=== PATIENT | male | born 1945 | race Caucasian/White ===

== ENCOUNTER 2024-06-11 18:31 | Inpatient (IN) | payer OTHER, MEDICARE ==
[~2024-06-11] VITALS: Ht 190.5 cm; Wt 86.7 kg
[2024-06-11] MEDS ORDERED: ACET325S20 PR (18:57)
[2024-06-11] MEDS ORDERED: ESCI-8 PO (18:57)
[2024-06-11] MEDS ORDERED: TRAZ-252 PO (18:57)
[2024-06-11] MEDS ORDERED: GABA-1181 PO (18:57)
[2024-06-11] MEDS ORDERED: EMPA25TA3 PO (18:57)
[2024-06-11 19:12] LABS: COVID AG,FIA SOURCE NASAL SWAB
[2024-06-11 19:32] LABS: SARS-COV2 (COVID) ANTIGEN,FIA Negative (Negative)
[2024-06-11 19:59] LABS: ALCOHOL, URINE DRUG SCREEN NEGATIVE (NEGATIVE); AMPHET/METH SCREEN,URINE NEGATIVE (NEGATIVE); BARBITURATE SCREEN, URINE NEGATIVE (NEGATIVE); BENZODIAZEPINES SCREEN,URINE NEGATIVE (NEGATIVE); CANNABINOID SCREEN,URINE NEGATIVE (NEGATIVE); COCAINE SCREEN,URINE NEGATIVE (NEGATIVE); METHADONE SCREEN, URINE NEGATIVE (NEGATIVE); OPIATE SCREEN,URINE NEGATIVE (NEGATIVE); PHENCYCLIDINE SCREEN,URINE NEGATIVE (NEGATIVE)
[2024-06-11 20:01] LABS: PH,URINE DRUG SCREEN 6.5 (5.0-8.0)
[2024-06-11 20:38] LABS: BASOPHILS % (AUTO) 0.7 % (0.0-2.0); EOSINOPHILS % (AUTO) 2.9 % (1.0-6.0); HEMATOCRIT 44.8 % (41-53); LYMPHOCYTES # (AUTO) 2.5 K/uL (1.0-4.8); LYMPHOCYTES % (AUTO) 37.5 % (22.0-44.0); MEAN CORPUSCULAR HEMOGLOBIN 34.9 pg (26.0-34.0); MEAN CORPUSCULAR HGB CONC 33.4 G/dL (31.0-37.0); MEAN CORPUSCULAR VOLUME 105 fL (80-100); MONOCYTES # (AUTO) 0.7 K/uL (0.1-1.0); NEUTROPHILS # (AUTO) 3.2 K/uL (1.8-7.7); NEUTROPHILS % (AUTO) 48.9 % (40.0-70.0); PLATELET COUNT (AUTO) 136 K/uL (150-450); RED BLOOD CELL COUNT(AUTO) 4.28 MIL/uL (4.50-5.90); RED CELL DISTRIBUTION WIDTH 12.8 % (11.5-14.5); WHITE BLOOD COUNT (AUTO) 6.6 K/uL (4.5-11.0)
[2024-06-11 20:44] LABS: ANION GAP 9 mmol/L (8-16); CALCIUM, TOTAL 8.4 mg/dL (8.8-10.5); CARBON DIOXIDE 27 mmol/L (22-29); CHLORIDE 104 mmol/L (98-107); CREATININE 0.82 mg/dL (0.60-1.30); GLOMERULAR FILTR. RATE CALC > 60 mL/min (>60); GLUCOSE,RANDOM 92 mg/dL (70-110); POTASSIUM 4.2 mmol/L (3.5-5.1); SODIUM SERUM 140 mmol/L (136-145); UREA NITROGEN, BLOOD 11 mg/dL (7-18)
[2024-06-11 20:51] LABS: ALCOHOL, BLOOD (SERUM) < 3 mg/dL (0-10)
[2024-06-11] MEDS ORDERED: ChlorproMAZINE HCL 50 MG TABLET PO PRN (22:45)
[2024-06-11] MEDS: LORazepam 2 MG TABLET PO PRN (23:56)
[2024-06-11] MEDS: ZOLPIDEM TARTRATE 5 MG TABLET PO PRN (23:57)
[2024-06-12 04:03] VITALS: O2SAT 96
[2024-06-12 05:43] VITALS: BP 118/58; PULSE 82; RESP 18; TEMP 98.2; O2SAT 98
[2024-06-12] MEDS ORDERED: INFLUENZA VIRUS VACCINE TVS (6MO+) 2024-25/PF 45 MCG/0.5 ML SYRINGE IM. ONE (06:00)
[2024-06-12] MEDS ORDERED: PNEUMOCOCCAL VACCINE POLYVALENT 0.5 ML SYRINGE [PPSV23] IM. ONE (06:00)
[2024-06-12 06:50] LABS: GLUCOMETER DEV NAME(LOC) BV3N.2; GLUCOSE,POINT OF CARE 87 MG/DL (70-110)
[2024-06-12] MEDS ORDERED: BENZOCAINE/MENTHOL LOZENGE PO PRN (07:00)
[2024-06-12] MEDS ORDERED: CloNIDine HCL 0.1 MG TABLET PO PRN (07:00)
[2024-06-12] MEDS ORDERED: ONDANSETRON 4 MG TABLET PO PRN (07:00)
[2024-06-12] MEDS ORDERED: ALBUTEROL SULFATE HFA 90 MCG/PUFF 8 GM INHALER IH PRN (07:00)
[2024-06-12] MEDS ORDERED: MAG HYDROX/ALUMINUM HYD/SIMETH ES 30 ML SUSPENSION UDCUP PO PRN (07:00)
[2024-06-12] MEDS ORDERED: MAGNESIUM HYDROXIDE SUSPENSION 30 ML UDCUP PO PRN (07:00)
[2024-06-12] MEDS ORDERED: DOCUSATE SODIUM 100 MG CAPSULE PO PRN (07:00)
[2024-06-12] MEDS ORDERED: LOPERAMIDE HCL 2 MG CAPSULE PO PRN (07:00)
[2024-06-12] MEDS ORDERED: IBUPROFEN 600 MG TABLET PO PRN (07:00)
[2024-06-12] MEDS ORDERED: BACITRACIN 28 GM OINTMENT TP PRN (07:00)
[2024-06-12] MEDS ORDERED: OMEPRAZOLE 20 MG CAPSULE PO PRN (07:00)
[2024-06-12] MEDS ORDERED: PETROLATUM,WHITE 28 GM JELLY TP PRN (07:00)
[2024-06-12] MEDS ORDERED: ACETAMINOPHEN 325 MG TABLET PO PRN (07:00)
[2024-06-12 07:25] LABS: GLUCOMETER DEV NAME(LOC) ER.7; GLUCOSE,POINT OF CARE 93 MG/DL (70-110)
[2024-06-12] MEDS: DIVALPROEX SODIUM 500 MG ER TABLET PO SCH ×2 (08:59→20:44)
[2024-06-12] MEDS: GABAPENTIN 300 MG CAPSULE PO SCH (08:59)
[2024-06-12] MEDS: OLANZapine 5 MG RAPDIS TABLET PO SCH (09:00)
[2024-06-12 14:42] VITALS: BP 109/70; PULSE 95; RESP 17; TEMP 98.3; O2SAT 98
[2024-06-12 20:49] VITALS: BP 117/55; PULSE 76; RESP 18; TEMP 98; O2SAT 97
[2024-06-13 08:21] VITALS: BP 116/59; PULSE 64; RESP 16; TEMP 97; O2SAT 95
[2024-06-13] MEDS: EMPAGLIFLOZIN 25 MG TABLET PO SCH (09:05)
[2024-06-13] MEDS ORDERED: MAGNESIUM HYDROXIDE SUSPENSION 30 ML UDCUP PO PRN (15:15)
[2024-06-13] MEDS ORDERED: ACETAMINOPHEN 325 MG TABLET PO PRN (15:15)
[2024-06-13] MEDS ORDERED: PROMETHAZINE HCL 25 MG TABLET PO PRN (15:15)
[2024-06-13] MEDS ORDERED: LOPERAMIDE HCL 2 MG CAPSULE PO PRN (15:15)
[2024-06-13] MEDS ORDERED: TUBERCULIN, PURIFIED PROTEIN DERIVATIVE 5 TU/0.1 ML SYRINGE ID ONE (15:15)
[2024-06-13] MEDS ORDERED: MAG HYDROX/ALUMINUM HYD/SIMETH ES 30 ML SUSPENSION UDCUP PO PRN (15:15)
[2024-06-13] MEDS ORDERED: ACET-2247 PO (15:21)
[2024-06-13] MEDS: OLANZapine 5 MG RAPDIS TABLET PO SCH (16:10)
[2024-06-13 20:17] VITALS: BP 103/57; PULSE 65; RESP 18; TEMP 97.2; O2SAT 98
[2024-06-14 08:37] VITALS: BP 103/60; PULSE 60; RESP 17; TEMP 96; O2SAT 97
[2024-06-14 20:00] VITALS: BP 105/66; PULSE 79; RESP 16; TEMP 97.7; O2SAT 97
[2024-06-15 09:10] VITALS: BP 100/63; PULSE 63; RESP 16; TEMP 96.2; O2SAT 75
[2024-06-15 20:18] VITALS: BP 116/53; PULSE 57; RESP 18; TEMP 97.3; O2SAT 95
[2024-06-16 09:48] VITALS: BP 101/60; PULSE 87; RESP 17; TEMP 97.5; O2SAT 96
[2024-06-16 20:23] VITALS: BP 123/56; PULSE 77; RESP 16; TEMP 97.2; O2SAT 100
[2024-06-16] MEDS: VALPROIC ACID 250 MG/5 ML SOLUTION UDCUP PO SCH (20:58)
[2024-06-17 08:15] VITALS: BP 120/72; PULSE 74; RESP 17; TEMP 97.6; O2SAT 100
[2024-06-17] MEDS: VALPROIC ACID 250 MG/5 ML SOLUTION UDCUP PO SCH (08:24)
[2024-06-17 08:27] VITALS: BP 120/62
[2024-06-17] MEDS ORDERED: VALP250S23 PO ×2 (12:27)
[2024-06-17] MEDS ORDERED: OLAN5TAB94 PO (12:27)
[2024-06-17] MEDS ORDERED: MELA5TAB40 PO (12:27)
[2024-06-17] MEDS ORDERED: GABA-1181 PO (12:27)
[2024-06-17 20:00] VITALS: BP 122/67; PULSE 100; RESP 16; TEMP 97; O2SAT 99
[2024-06-17] MEDS: OLANZapine 5 MG RAPDIS TABLET PO PRN (23:20)
[2024-06-18 20:00] VITALS: BP 100/63; PULSE 100; RESP 16; TEMP 97.1; O2SAT 97
[2024-06-19] MEDS ORDERED: ZINC OXIDE 16% PASTE 57 GM TUBE TP PRN (06:00)
[2024-06-19 09:23] VITALS: BP 99/64; PULSE 63; RESP 15; TEMP 97.8; O2SAT 98
[2024-06-19 19:10] LABS: GLUCOMETER DEV NAME(LOC) POC.BV; POC SARS-COV2 AG, FIA NEGATIVE (NEGATIVE)
[2024-06-19 21:21] VITALS: BP 91/62; PULSE 87; RESP 17; TEMP 97.8; O2SAT 97
[2024-06-20 09:46] VITALS: BP 122/55; PULSE 97; RESP 16; TEMP 97.3; O2SAT 94
[2024-06-20 21:05] VITALS: BP 103/60; PULSE 83; RESP 16; TEMP 97.7; O2SAT 95
== END 2024-06-21 01:53 | disposition short-term general hospital (02) | DRG 885 ==
LOC: EMS 18:31 → B3A 06-12 01:14
PROVIDERS: ADMIT Psychiatry & Neurology Psychiatry; ATTEND Psychiatry & Neurology Psychiatry
PROC: GZHZZZZ Group Psychotherapy (ICD-10-PCS; principal; 2024-06-13)
PROC: GZ58ZZZ Individual Psychotherapy, Cognitive-Behavioral (ICD-10-PCS; 2024-06-13)
DX: F20.0 Paranoid schizophrenia (principal); I11.0 Hypertensive heart disease with heart failure; F03.93 Unspecified dementia, unspecified severity, with mood disturbance; F03.918 Unspecified dementia, unspecified severity, with other behavioral disturbance; I50.9 Heart failure, unspecified; Z20.822 Contact with and (suspected) exposure to COVID-19; G47.00 Insomnia, unspecified; E11.9 Type 2 diabetes mellitus without complications; I48.91 Unspecified atrial fibrillation; K59.00 Constipation, unspecified; F43.10 Post-traumatic stress disorder, unspecified; F17.200 Nicotine dependence, unspecified, uncomplicated; R45.86 Emotional lability; Z86.73 Personal history of transient ischemic attack (TIA), and cerebral infarction without residual deficits; Z88.8 Allergy status to other drugs, medicaments and biological substances; Z79.899 Other long term (current) drug therapy
CPT/HCPCS: 70450; 80048; 80164; 80307; 82962; 85025; 87081; 87481; 99285; G0480

== ENCOUNTER 2024-06-20 19:46 | Inpatient (IN) | payer MEDICARE, OTHER ==
[~2024-06-20] VITALS: Ht 188 cm; Wt 78.0 kg
[~2024-06-20 19:46] MED LIST: ACET-2247 PO; EMPA25TA3 PO; ESCI-8 PO; GABA-1181 PO; MELA5TAB40 PO; OLAN5TAB94 PO; TRAZ-252 PO; VALP250S23 PO
[2024-06-20 21:35] LABS: BASOPHILS % (AUTO) 0.8 % (0.0-2.0); EOSINOPHILS % (AUTO) 1.9 % (1.0-6.0); HEMATOCRIT 50.8 % (41-53); HEMOGLOBIN 16.8 g/dL (13.5-17.5); LYMPHOCYTES # (AUTO) 1.8 K/uL (1.0-4.8); LYMPHOCYTES % (AUTO) 25.4 % (22.0-44.0); MEAN CORPUSCULAR HEMOGLOBIN 34.7 pg (26.0-34.0); MEAN CORPUSCULAR HGB CONC 33.1 G/dL (31.0-37.0); MEAN CORPUSCULAR VOLUME 105 fL (80-100); MONOCYTES # (AUTO) 0.8 K/uL (0.1-1.0); MONOCYTES % (AUTO) 10.6 % (2.0-9.0); NEUTROPHILS # (AUTO) 4.4 K/uL (1.8-7.7); NEUTROPHILS % (AUTO) 61.3 % (40.0-70.0); PLATELET COUNT (AUTO) 131 K/uL (150-450); RED BLOOD CELL COUNT(AUTO) 4.84 MIL/uL (4.50-5.90); RED CELL DISTRIBUTION WIDTH 12.7 % (11.5-14.5); WHITE BLOOD COUNT (AUTO) 7.2 K/uL (4.5-11.0)
[2024-06-20 21:48] LABS: B-TYPE NATRIURETIC PEPTIDE 67 pg/mL (0-100)
[2024-06-20 21:49] LABS: ANION GAP 11 mmol/L (8-16); CALCIUM, TOTAL 9.1 mg/dL (8.8-10.5); CARBON DIOXIDE 28 mmol/L (22-29); CHLORIDE 108 mmol/L (98-107); CREATININE 1.07 mg/dL (0.60-1.30); GLOMERULAR FILTR. RATE CALC > 60 mL/min (>60); GLUCOSE,RANDOM 106 mg/dL (70-110); POTASSIUM 4.3 mmol/L (3.5-5.1); SODIUM SERUM 147 mmol/L (136-145); UREA NITROGEN, BLOOD 20 mg/dL (7-18)
[2024-06-20 21:56] LABS: ALANINE AMINOTRANSFERASE 30 U/L (12-78); ALBUMIN 3.2 g/dL (3.4-5.0); ALKALINE PHOSPHATASE 102 U/L (46-116); ASPARTATE AMINOTRANSFERASE 46 U/L (15-37); BILIRUBIN,TOTAL 1.1 mg/dL (0.1-1.0); TOTAL PROTEIN, SERUM 7.1 g/dL (6.4-8.2)
[2024-06-20] MEDS: LORazepam 2 MG/ML VIAL IVP ONE (23:28)
[2024-06-21 00:14] LABS: APPEARANCE,URINE CLEAR (CLEAR); BILIRUBIN,URINE NEGATIVE (NEGATIVE); COLOR,URINE YELLOW (YELLOW); GLUCOSE, URINE (UA) >=1000 mg/dL (NEGATIVE); KETONES,URINE 40-60 mg/dL (NEGATIVE); LEUKOCYTE ESTERASE ,URINE NEGATIVE (NEGATIVE); NITRATE,URINE NEGATIVE (NEGATIVE); OCCULT BLOOD,URINE SMALL (NEGATIVE); PH,URINE 5.5 (5.0-8.0); PROTEIN,URINE NEGATIVE (NEGATIVE); SPECIFIC GRAVITIY, URINE 1.032 (1.003-1.030); UROBILINOGEN,URINE <=1.0 mg/dL (<=1.0)
[2024-06-21 00:20] LABS: BACTERIA,URINE None Seen /HPF (None Seen); RBC,URINE 0-2 /HPF (0-2); SQUAMOUS EPITHELIAL CELL,UR Moderate /LPF (None Seen); WBC,URINE None Seen /HPF (0-5)
[2024-06-21] MEDS ORDERED: SODIUM CHLORIDE 0.9% 500 ML IV ONE (00:30)
[2024-06-21] MEDS ORDERED: MAGNESIUM HYDROXIDE SUSPENSION 30 ML UDCUP PO PRN (00:45)
[2024-06-21] MEDS ORDERED: ACETAMINOPHEN 325 MG TABLET PO PRN (00:45)
[2024-06-21] MEDS ORDERED: DEXTROSE 50%-WATER 25 GM/50 ML SYRINGE IVP PRN (00:45)
[2024-06-21 00:54] LABS: TROPONIN I-HIGH SENSITIVITY 14 ng/L (<76)
[2024-06-21] MEDS: SODIUM CHLORIDE 0.9% 1,000 ML IV ONE (00:54)
[2024-06-21] MEDS: CefTRIAXone 1 GM/DEXTROSE 50 ML IV ONE (00:56)
[2024-06-21] MEDS: DEXTROSE 5%-0.45% SODIUM CHL 1,000 ML IV ONE (00:58)
[2024-06-21 01:14] LABS: LACTIC ACID 1.6 mmol/L (0.4-2.0)
[2024-06-21 02:01] LABS: VALPROIC ACID 60 mcg/mL (50-100)
[2024-06-21] MEDS: LORazepam 2 MG/ML VIAL IVP ONE ×2 (02:30→09:30)
[2024-06-21] MEDS: DILTIAZEM HCL 125 MG in DEXTROSE 5%-WATER 100 ML IV PRN (05:30)
[2024-06-21] MEDS ORDERED: SODIUM CHLORIDE 0.9% 100 ML ONE (07:45)
[2024-06-21] MEDS ORDERED: IOHEXOL 350 MG/ML 100 ML VIAL ONE (07:45)
[2024-06-21] MEDS: ATORVASTATIN CALCIUM 40 MG TABLET PO SCH (08:29)
[2024-06-21] MEDS: ASPIRIN 81 MG CHEWABLE TABLET PO SCH (08:29)
[2024-06-21] MEDS: PANTOPRAZOLE SODIUM 40 MG/VIAL IVP SCH (08:43)
[2024-06-21 12:09] VITALS: BP_SYST 118; BP_SYST 131; BP_DIAS 62; BP_DIAS 75; PULSE 67; PULSE 96; RESP 14; RESP 26; TEMP 98.3; TEMP 99; O2SAT 93; O2SAT 96
[2024-06-21 12:12] VITALS: PULSE 101
[2024-06-21 12:20] LABS: GLUCOMETER DEV NAME(LOC) ICUN.5; GLUCOSE,POINT OF CARE 111 MG/DL (70-110)
[2024-06-21] MEDS: DIGOXIN 250 MCG/ML 2 ML AMP IVP SCH (15:23)
[2024-06-21 16:05] VITALS: BP 102/85; PULSE 114; RESP 16; TEMP 98.5; O2SAT 95
[2024-06-21 16:06] VITALS: PULSE 111
[2024-06-21 20:00] VITALS: BP 114/77; PULSE 126; RESP 17; TEMP 97.7; O2SAT 96
[2024-06-21 20:21] LABS: GLUCOMETER DEV NAME(LOC) ICU.S6; GLUCOSE,POINT OF CARE 102 MG/DL (70-110)
[2024-06-21] MEDS: CHLORHEXIDINE GLUCONATE 2% TOWELETTE [2'S/6'S] TP SCH (22:20)
[2024-06-22] VITALS (8 sets, daily range): BP systolic 100–133; BP diastolic 63–75; PULSE 91–109; RESP 12–24; TEMP 98–99.1; O2SAT 93–97
[2024-06-22 01:11] LABS: GLUCOMETER DEV NAME(LOC) ICU.S6; GLUCOSE,POINT OF CARE 107 MG/DL (70-110)
[2024-06-22] MEDS: DEXTROSE 5%-0.45% SODIUM CHL 1,000 ML IV ONE (02:27)
[2024-06-22 05:37] LABS: BASOPHILS % (AUTO) 0.5 % (0.0-2.0); EOSINOPHILS % (AUTO) 0.9 % (1.0-6.0); LYMPHOCYTES # (AUTO) 1.5 K/uL (1.0-4.8); LYMPHOCYTES % (AUTO) 19.8 % (22.0-44.0); MEAN CORPUSCULAR HEMOGLOBIN 35.6 pg (26.0-34.0); MEAN CORPUSCULAR VOLUME 105 fL (80-100); MONOCYTES # (AUTO) 0.9 K/uL (0.1-1.0); MONOCYTES % (AUTO) 12.2 % (2.0-9.0); NEUTROPHILS % (AUTO) 66.6 % (40.0-70.0); PLATELET COUNT (AUTO) 128 K/uL (150-450); RED BLOOD CELL COUNT(AUTO) 4.48 MIL/uL (4.50-5.90); RED CELL DISTRIBUTION WIDTH 12.7 % (11.5-14.5); WHITE BLOOD COUNT (AUTO) 7.5 K/uL (4.5-11.0)
[2024-06-22 05:39] LABS: ANION GAP 12 mmol/L (8-16); CALCIUM, TOTAL 8.3 mg/dL (8.8-10.5); CARBON DIOXIDE 27 mmol/L (22-29); CHLORIDE 113 mmol/L (98-107); CREATININE 1.11 mg/dL (0.60-1.30); GLOMERULAR FILTR. RATE CALC > 60 mL/min (>60); GLUCOSE,RANDOM 104 mg/dL (70-110); SODIUM SERUM 152 mmol/L (136-145); UREA NITROGEN, BLOOD 16 mg/dL (7-18)
[2024-06-22 05:43] LABS: RBC MORPHOLOGY COMMENT ABNORMAL RBC MORPH
[2024-06-22] MEDS: DEXTROSE 5%-WATER 1,000 ML IV SCH (09:57)
[2024-06-22 10:36] LABS: GLUCOMETER DEV NAME(LOC) ICU.S6; GLUCOSE,POINT OF CARE 104 MG/DL (70-110)
[2024-06-22 11:35] LABS: GLUCOMETER DEV NAME(LOC) ICUN.5; GLUCOSE,POINT OF CARE 116 MG/DL (70-110)
[2024-06-22] MEDS: LORazepam 2 MG/ML VIAL IVP ONE (14:41)
[2024-06-22] MEDS ORDERED: SODIUM CHLORIDE 0.9% 100 ML ONE (15:14)
[2024-06-22] MEDS ORDERED: IOHEXOL 350 MG/ML 100 ML VIAL ONE (15:14)
[2024-06-22 17:31] LABS: GLUCOMETER DEV NAME(LOC) ICU.S6; GLUCOSE,POINT OF CARE 111 MG/DL (70-110)
[2024-06-22 23:01] LABS: GLUCOMETER DEV NAME(LOC) ICU.S6; GLUCOSE,POINT OF CARE 135 MG/DL (70-110)
[2024-06-23] VITALS: BP 106/70; PULSE 98; RESP 16; TEMP 99; O2SAT 95
[2024-06-23 04:00] VITALS: BP 113/76; PULSE 99; RESP 16; TEMP 98.9; O2SAT 94
[2024-06-23 06:00] LABS: GLUCOMETER DEV NAME(LOC) ICUN.5; GLUCOSE,POINT OF CARE 116 MG/DL (70-110)
[2024-06-23 06:26] LABS: BASOPHILS % (AUTO) 0.6 % (0.0-2.0); EOSINOPHILS % (AUTO) 0.7 % (1.0-6.0); HEMATOCRIT 47.1 % (41-53); HEMOGLOBIN 16.3 g/dL (13.5-17.5); LYMPHOCYTES # (AUTO) 1.8 K/uL (1.0-4.8); LYMPHOCYTES % (AUTO) 21.2 % (22.0-44.0); MEAN CORPUSCULAR HEMOGLOBIN 36.1 pg (26.0-34.0); MEAN CORPUSCULAR HGB CONC 34.6 G/dL (31.0-37.0); MEAN CORPUSCULAR VOLUME 104 fL (80-100); MONOCYTES % (AUTO) 12.4 % (2.0-9.0); NEUTROPHILS # (AUTO) 5.4 K/uL (1.8-7.7); NEUTROPHILS % (AUTO) 65.1 % (40.0-70.0); PLATELET COUNT (AUTO) 134 K/uL (150-450); RED BLOOD CELL COUNT(AUTO) 4.52 MIL/uL (4.50-5.90); RED CELL DISTRIBUTION WIDTH 12.7 % (11.5-14.5); WHITE BLOOD COUNT (AUTO) 8.3 K/uL (4.5-11.0)
[2024-06-23 06:39] LABS: ANION GAP 10 mmol/L (8-16); CALCIUM, TOTAL 8.8 mg/dL (8.8-10.5); CARBON DIOXIDE 29 mmol/L (22-29); CHLORIDE 109 mmol/L (98-107); CREATININE 1.15 mg/dL (0.60-1.30); GLOMERULAR FILTR. RATE CALC > 60 mL/min (>60); GLUCOSE,RANDOM 114 mg/dL (70-110); POTASSIUM 3.6 mmol/L (3.5-5.1); SODIUM SERUM 148 mmol/L (136-145); UREA NITROGEN, BLOOD 12 mg/dL (7-18)
[2024-06-23 08:00] VITALS: BP 123/78; PULSE 118; PULSE 121; RESP 19; TEMP 99.9; O2SAT 94
[2024-06-23] MEDS: AMIODARONE HCL 150 MG in DEXTROSE 5%-WATER 97 ML IV ONE (09:23)
[2024-06-23] MEDS: AMIODARONE HCL 360 MG in DEXTROSE 5%-WATER 242.8 ML IV ONE (09:33)
[2024-06-23 12:00] VITALS: BP 119/70; PULSE 108; PULSE 115; RESP 25; TEMP 99.2; O2SAT 95
[2024-06-23] MEDS: AMIODARONE HCL 540 MG in DEXTROSE 5%-WATER 239.2 ML IV ONE (14:32)
[2024-06-23 16:00] VITALS: BP 116/67; PULSE 110; PULSE 116; RESP 26; TEMP 99.4; O2SAT 91
[2024-06-23] MEDS: INSULIN LISPRO 100 UNITS/ML SQ PRN (17:23)
[2024-06-23 17:40] LABS: GLUCOMETER DEV NAME(LOC) ICU.S6; GLUCOSE,POINT OF CARE 153 MG/DL (70-110)
[2024-06-23 17:51] LABS: GLUCOMETER DEV NAME(LOC) ICUN.5; GLUCOSE,POINT OF CARE 131 MG/DL (70-110)
[2024-06-23] MEDS: ACETAMINOPHEN 500 MG/ISO-OSM 50 ML IV ONE ×2 (19:12→23:53)
[2024-06-23 20:00] VITALS: BP 101/71; PULSE 112; RESP 23; TEMP 102.2; O2SAT 95
[2024-06-23 20:21] LABS: GLUCOMETER DEV NAME(LOC) ICUN.5; GLUCOSE,POINT OF CARE 119 MG/DL (70-110)
[2024-06-23] MEDS ORDERED: 0.9% SODIUM CHLORIDE 10 ML SYRINGE IVP PRN (21:45)
[2024-06-23] MEDS: *CLINICAL-MEROPENEM DOSING CLINICAL ONE (22:17)
[2024-06-23 22:19] LABS: BASOPHILS % (AUTO) 0.5 % (0.0-2.0); EOSINOPHILS % (AUTO) 0 % (1.0-6.0); HEMATOCRIT 53.1 % (41-53); HEMOGLOBIN 17.5 g/dL (13.5-17.5); LYMPHOCYTES # (AUTO) 1.5 K/uL (1.0-4.8); LYMPHOCYTES % (AUTO) 11.6 % (22.0-44.0); MEAN CORPUSCULAR HEMOGLOBIN 34.6 pg (26.0-34.0); MEAN CORPUSCULAR HGB CONC 32.9 G/dL (31.0-37.0); MEAN CORPUSCULAR VOLUME 105 fL (80-100); MONOCYTES % (AUTO) 7.7 % (2.0-9.0); NEUTROPHILS # (AUTO) 10.1 K/uL (1.8-7.7); NEUTROPHILS % (AUTO) 80.2 % (40.0-70.0); PLATELET COUNT (AUTO) 147 K/uL (150-450); RED BLOOD CELL COUNT(AUTO) 5.05 MIL/uL (4.50-5.90); RED CELL DISTRIBUTION WIDTH 12.7 % (11.5-14.5); WHITE BLOOD COUNT (AUTO) 12.5 K/uL (4.5-11.0)
[2024-06-23] MEDS: SODIUM CHLORIDE 0.9% 250 ML IV ONE ×2 (22:22→23:06)
[2024-06-23] MEDS ORDERED: SODIUM CHLORIDE 0.9% 250 ML IV ONE (22:25)
[2024-06-23 22:31] LABS: ANION GAP 11 mmol/L (8-16); CALCIUM, TOTAL 8.9 mg/dL (8.8-10.5); CARBON DIOXIDE 28 mmol/L (22-29); CHLORIDE 106 mmol/L (98-107); CREATININE 1.39 mg/dL (0.60-1.30); GLOMERULAR FILTR. RATE CALC 49 mL/min (>60); GLUCOSE,RANDOM 113 mg/dL (70-110); POTASSIUM 4.2 mmol/L (3.5-5.1); SODIUM SERUM 145 mmol/L (136-145); UREA NITROGEN, BLOOD 15 mg/dL (7-18)
[2024-06-23 22:42] LABS: LACTIC ACID 2.5 mmol/L (0.4-2.0)
[2024-06-23 22:43] LABS: D-DIMER 19.04 mg/L FEU (0.00-0.50)
[2024-06-23 22:50] LABS: APPEARANCE,URINE HAZY (CLEAR); BILIRUBIN,URINE NEGATIVE (NEGATIVE); COLOR,URINE LIGHT ORANGE (YELLOW); GLUCOSE, URINE (UA) >=1000 mg/dL (NEGATIVE); LEUKOCYTE ESTERASE ,URINE MODERATE (NEGATIVE); NITRATE,URINE NEGATIVE (NEGATIVE); OCCULT BLOOD,URINE LARGE (NEGATIVE); PH,URINE 5.5 (5.0-8.0); PROTEIN,URINE 30-70 mg/dL (NEGATIVE); SPECIFIC GRAVITIY, URINE 1.043 (1.003-1.030); UROBILINOGEN,URINE <=1.0 mg/dL (<=1.0)
[2024-06-23 22:55] LABS: ALANINE AMINOTRANSFERASE 38 U/L (12-78); ALKALINE PHOSPHATASE 95 U/L (46-116); ASPARTATE AMINOTRANSFERASE 82 U/L (15-37); LACTATE DEHYDROGENASE 215 U/L (85-227); TOTAL PROTEIN, SERUM 7.5 g/dL (6.4-8.2)
[2024-06-23 22:57] LABS: CREATINE KINASE, TOTAL ONLY 1190 U/L (39-308)
[2024-06-23] MEDS: VANCOMYCIN 1.5 GM/WATER(PEG) 300 ML IV ONE (23:16)
[2024-06-23] MEDS: DIGOXIN 250 MCG/ML 2 ML AMP IVP ONE (23:53)
[2024-06-24] VITALS (11 sets, daily range): BP systolic 91–116; BP diastolic 37–63; PULSE 88–161; RESP 19–45; TEMP 98.4–101; O2SAT 88–97
[2024-06-24] MEDS: MEROPENEM 1 GM in SODIUM CHLORIDE 0.9% 100 ML IV SCH (00:24)
[2024-06-24 00:34] LABS: RBC,URINE 26-50 /HPF (0-2)
[2024-06-24 00:35] LABS: BACTERIA,URINE Moderate /HPF (None Seen); SQUAMOUS EPITHELIAL CELL,UR Rare /LPF (None Seen); YEAST,URINE Moderate /HPF (None Seen)
[2024-06-24 01:48] LABS: ABG BASE EXCESS -3.6 mmol/L (-2.0-3.0); ABG CARBOXYHEMOGLOBIN 0.1 % (0.5-1.5); ABG HCO3 22.7 mmol/L (21.0-28.0); ABG METHEMOGLOBIN 0.2 % (0.0-1.5); ABG OXYGEN CONTENT 21.6 mL/dL (15.0-23.0); ABG OXYGEN SATURATION 92.4 % (94.0-98.0); ABG OXYHEMOGLOBIN 92.1 % (94.0-98.0); ABG PCO2 26 mmHg (32.0-48.0); ABG PH 7.501 (7.350-7.450); ABG TOTAL HEMOGLOBIN 16.7 G/dL (13.5-17.5); SOURCE, BLOOD GAS ARTERIAL; TEMPERATURE, FAHRENHEIT, BG 94.3 FAHREN (96.0-98.6)
[2024-06-24 01:49] LABS: ALLEN TEST, BLOOD GAS Positive; PO2, ARTERIAL BG 50.8 mmHg (83.0-108.0); SITE, BLOOD GAS RT RADIAL
[2024-06-24 01:50] LABS: O2 DEVICE,BLOOD GAS HI FL CANNULA (ROOM AIR)
[2024-06-24 06:10] LABS: BASOPHILS % (AUTO) 0.3 % (0.0-2.0); EOSINOPHILS % (AUTO) 0 % (1.0-6.0); HEMATOCRIT 48.9 % (41-53); HEMOGLOBIN 16.5 g/dL (13.5-17.5); LYMPHOCYTES # (AUTO) 1.2 K/uL (1.0-4.8); LYMPHOCYTES % (AUTO) 7.6 % (22.0-44.0); MEAN CORPUSCULAR HEMOGLOBIN 35.5 pg (26.0-34.0); MEAN CORPUSCULAR HGB CONC 33.7 G/dL (31.0-37.0); MEAN CORPUSCULAR VOLUME 105 fL (80-100); MONOCYTES # (AUTO) 1.1 K/uL (0.1-1.0); MONOCYTES % (AUTO) 7.3 % (2.0-9.0); NEUTROPHILS # (AUTO) 13.2 K/uL (1.8-7.7); NEUTROPHILS % (AUTO) 84.8 % (40.0-70.0); PLATELET COUNT (AUTO) 120 K/uL (150-450); RED BLOOD CELL COUNT(AUTO) 4.65 MIL/uL (4.50-5.90); RED CELL DISTRIBUTION WIDTH 12.6 % (11.5-14.5); WHITE BLOOD COUNT (AUTO) 15.5 K/uL (4.5-11.0)
[2024-06-24 06:11] LABS: GLUCOMETER DEV NAME(LOC) ICUN.5; GLUCOSE,POINT OF CARE 108 MG/DL (70-110)
[2024-06-24 06:51] LABS: ALANINE AMINOTRANSFERASE 34 U/L (12-78); ALBUMIN 2.6 g/dL (3.4-5.0); ALKALINE PHOSPHATASE 80 U/L (46-116); ANION GAP 13 mmol/L (8-16); ASPARTATE AMINOTRANSFERASE 80 U/L (15-37); BILIRUBIN,TOTAL 2.2 mg/dL (0.1-1.0); CALCIUM, TOTAL 8.6 mg/dL (8.8-10.5); CARBON DIOXIDE 24 mmol/L (22-29); CHLORIDE 109 mmol/L (98-107); CREATININE 1.14 mg/dL (0.60-1.30); GLOMERULAR FILTR. RATE CALC > 60 mL/min (>60); GLUCOSE,RANDOM 105 mg/dL (70-110); PHOSPHORUS 2.9 mg/dL (2.5-4.9); POTASSIUM 3.4 mmol/L (3.5-5.1); SODIUM SERUM 146 mmol/L (136-145); TOTAL PROTEIN, SERUM 6.6 g/dL (6.4-8.2); UREA NITROGEN, BLOOD 17 mg/dL (7-18)
[2024-06-24] MEDS: 0.9% SODIUM CHLORIDE 10 ML SYRINGE IVP SCH (08:38)
[2024-06-24] MEDS: VANCOMYCIN 750 MG/WATER(PEG) 150 ML IV SCH (08:40)
[2024-06-24] MEDS: AMIODARONE HCL 750 MG in DEXTROSE 5%-WATER 485 ML IV SCH (08:41)
[2024-06-24] MEDS ORDERED: IOHEXOL 350 MG/ML 100 ML VIAL ONE (10:50)
[2024-06-24] MEDS ORDERED: SODIUM CHLORIDE 0.9% 100 ML ONE (10:51)
[2024-06-24 12:11] LABS: GLUCOMETER DEV NAME(LOC) ICU.S6; GLUCOSE,POINT OF CARE 119 MG/DL (70-110)
[2024-06-24] MEDS ORDERED: POTASSIUM CHL 10 MEQ/WATER 50 ML IV PRN (13:15)
[2024-06-24] MEDS ORDERED: POTASSIUM CHLORIDE 20 MEQ ER TABLET PO PRN (13:15)
[2024-06-24] MEDS: MORPHINE SULFATE 2 MG/ML SYRINGE IVP PRN (18:30)
[2024-06-25 04:00] VITALS: BP 103/65; PULSE 97; RESP 18; TEMP 98.4; O2SAT 94
[2024-06-25 10:04] VITALS: BP 109/67; PULSE 91; RESP 18; TEMP 98.9; O2SAT 98
[2024-06-25 13:20] VITALS: BP 115/64; PULSE 96; RESP 18; TEMP 98.4; O2SAT 94
[2024-06-25 16:16] VITALS: BP 126/78; PULSE 102; RESP 18; TEMP 98.7
[2024-06-25 20:09] VITALS: BP 101/57; PULSE 94; RESP 18; TEMP 99.2; O2SAT 95
[2024-06-26 00:06] VITALS: PULSE 88; RESP 31; O2SAT 95
[2024-06-26 06:11] VITALS: BP 101/55; PULSE 90; RESP 18; TEMP 98.4; O2SAT 97
[2024-06-26 08:42] VITALS: BP 109/70; PULSE 93; RESP 19; TEMP 98; O2SAT 98
[2024-06-26] MEDS ORDERED: LORazepam 2 MG/ML VIAL IVP SCH (12:15)
[2024-06-26] MEDS: LORazepam 2 MG/ML VIAL IVP SCH (12:48)
[2024-06-26] MEDS: MORPHINE SULFATE 2 MG/ML SYRINGE IVP SCH (14:15)
[2024-06-26 15:55] VITALS: BP 108/62; PULSE 92; RESP 18; TEMP 98.2; O2SAT 93
[2024-06-26] MEDS: HYOSCYAMINE SULFATE 0.125 MG TAB SL SCH (16:36)
[2024-06-26 20:10] VITALS: BP 112/78; PULSE 93; RESP 18; TEMP 99.1; O2SAT 97
[2024-06-27 03:34] VITALS: BP 106/68; PULSE 94; RESP 18; TEMP 98.2; O2SAT 94
[2024-06-27 04:15] VITALS: PULSE 93; RESP 31; O2SAT 95
[2024-06-27 07:30] VITALS: PULSE 89; RESP 24; O2SAT 94
[2024-06-27 08:29] VITALS: BP 110/56; PULSE 63; RESP 18; TEMP 98.1; O2SAT 96
[2024-06-27 15:42] VITALS: BP 124/60; PULSE 66; RESP 24; TEMP 100.4; O2SAT 89
[2024-06-27 20:00] VITALS: BP 114/54; PULSE 89; RESP 20; TEMP 98.6; O2SAT 91
[2024-06-27] MEDS: LORazepam 2 MG/ML VIAL IVP SCH (20:50)
[2024-06-27] MEDS: MORPHINE SULFATE 2 MG/ML SYRINGE IVP SCH (20:50)
[2024-06-28 04:45] VITALS: BP 114/70; PULSE 92; RESP 21; TEMP 98.1; O2SAT 93
[2024-06-28 07:25] VITALS: BP 113/66; PULSE 87; RESP 20; TEMP 99; O2SAT 95
[2024-06-28 11:09] VITALS: PULSE 95; RESP 24; O2SAT 93
[2024-06-28 15:31] VITALS: BP 111/57; PULSE 92; RESP 20; TEMP 99.7; O2SAT 95
[2024-06-28] MEDS: LORazepam 2 MG/ML VIAL IVP SCH ×2 (17:10→19:02)
[2024-06-28] MEDS: MORPHINE SULFATE 2 MG/ML SYRINGE IVP SCH ×2 (17:10→19:02)
[2024-06-28] MEDS ORDERED: MORPHINE SULFATE 2 MG/ML SYRINGE IVP SCH (19:00)
[2024-06-28] MEDS ORDERED: LORazepam 2 MG/ML VIAL IVP SCH (19:00)
[2024-06-28 19:45] VITALS: PULSE 95; RESP 26; O2SAT 91
[2024-06-28 21:00] VITALS: BP 96/61; PULSE 75; RESP 20; TEMP 99.4; O2SAT 93
[2024-06-28] MEDS: ACETAMINOPHEN 650 MG RECTAL SUPPOSITORY PR PRN (23:46)
[2024-06-29] VITALS (11 sets, daily range): BP systolic 59–140; BP diastolic 31–82; PULSE 52–126; RESP 20–42; TEMP 97.8–103.2; O2SAT 67–99
== END 2024-06-30 02:55 | DRG 871 ==
LOC: EMS 19:46 → EDH 06-21 01:15 → ICU 06-21 09:30 → 6S 06-24 18:05 → 4E 06-25 12:04
PROVIDERS: ADMIT Internal Medicine; ATTEND Internal Medicine
PROC: 5A09357 Assistance with Respiratory Ventilation, Less than 24 Consecutive Hours, Continuous Positive Airway Pressure (ICD-10-PCS; principal; 2024-06-24)
PROC: 5A0955A Assistance with Respiratory Ventilation, Greater than 96 Consecutive Hours, High Flow/Velocity Cannula (ICD-10-PCS; 2024-06-24)
DX: A41.9 Sepsis, unspecified organism (principal); J96.00 Acute respiratory failure, unspecified whether with hypoxia or hypercapnia; E87.0 Hyperosmolality and hypernatremia; F03.90 Unspecified dementia, unspecified severity, without behavioral disturbance, psychotic disturbance, mood disturbance, and anxiety; E11.9 Type 2 diabetes mellitus without complications; I48.91 Unspecified atrial fibrillation; R62.7 Adult failure to thrive; Z68.22 Body mass index [BMI] 22.0-22.9, adult; E87.6 Hypokalemia; D69.6 Thrombocytopenia, unspecified; I11.0 Hypertensive heart disease with heart failure; E86.0 Dehydration; F20.9 Schizophrenia, unspecified; F43.10 Post-traumatic stress disorder, unspecified; F41.9 Anxiety disorder, unspecified; I50.9 Heart failure, unspecified; Z51.5 Encounter for palliative care; Z86.73 Personal history of transient ischemic attack (TIA), and cerebral infarction without residual deficits; Z99.3 Dependence on wheelchair
CPT/HCPCS: 36600; 70553; 71045; 71275; 74177; 80048; 80053; 80076; 80164; 81001; 82550; 82805; 82962; 83605; 83615; 83735; 83880; 84100; 84145; 84484; 85025; 85379; 85730; 87040; 87081; 87086; 87481; 92526; 92610; 93005; 93306; 93970; 94660; 94760; 97110; 97167; 97535; 99291; G0378; J0131; J0282; J0696; J1160; J2060; J2185; J2270; J2470; J3490; J7030; J7050; J7060; 36415-L1; 36415-TC